=== PATIENT | female | born 1980 ===

== ENCOUNTER 2025-01-12 08:00 | Day surgery (SDC) | payer OTHER ==
[2025-01-05 12:13] VITALS: BP 126/90
[~2025-01-12] VITALS: Ht 172.7 cm; Wt 70.3 kg
[2025-01-12] MEDS ORDERED: IBU600 MG PO (11:27)
== END 2025-01-12 17:57 | disposition home or self-care (01) ==
LOC: CIR.AMB 08:00
PROVIDERS: ATTEND Obstetrics & Gynecology Gynecology
DX: N84.0 Polyp of corpus uteri (principal); Z88.2 Allergy status to sulfonamides; Z88.8 Allergy status to other drugs, medicaments and biological substances